=== PATIENT | male | born 1970 | race African-American/Black ===

== ENCOUNTER 2018-11-28 06:07 | Inpatient (IN) | payer BC ==
[2018-11-28] VITALS (21 sets, daily range): BP systolic 108–159; BP diastolic 64–100
[~2018-11-28] VITALS: Ht 185.4 cm; Wt 120.2 kg
[2018-11-28] MEDS ORDERED: MORPHINE SULFATE 4 MG/ML CPJ (NOT FOR IM USE) IV ONE (07:15)
[2018-11-28] MEDS ORDERED: IOHEXOL-350 100 ML BOTTLE ONE (07:36)
[2018-11-28 07:48] LABS: BASOPHILS % 0.7 % (0.0-2.0); EOSINOPHILS % 1.5 % (0.0-5.0); HEMATOCRIT. 43.3 % (42.0-52.0); HEMOGLOBIN. 14.2 g/dL (14.0-18.0); LYMPHOCYTES % 54.3 % (20.0-50.0); MEAN CORPUSCULAR HEMOGLOBIN 27.5 pg (28.0-32.0); MEAN CORPUSCULAR VOLUME 84.3 fL (80.0-94.0); MEAN PLATELET VOLUME 7.8 fl (7.4-10.4); MONOCYTES % 7.2 % (2.0-8.0); NEUTROPHILS % 36.3 % (40.0-76.0); PLATELET 216 x1000/uL (130-400); RED BLOOD CELL COUNT 5.14 mill/uL (4.7-6.1); RED CELL DISTRIBUTION WIDTH 13.4 % (11.6-14.6)
[2018-11-28 07:55] LABS: CHLORIDE 107 mEq/L (98-107)
[2018-11-28 07:57] LABS: PROTHROMBIN TIME 10.4 sec (9.1-11.1)
[2018-11-28] MEDS: ALTEPLASE IV STA ×2 (08:26→08:38)
[2018-11-28] MEDS: ALTEPLASE 100MG/VIAL IV STA ×2 (08:26→08:37)
[2018-11-28] MEDS: ALTEPLASE 81 MG in BAG 1 EACH IV NR (08:38)
[2018-11-28] MEDS ORDERED: ALTEPLASE 100MG/VIAL IV NR (08:45)
[2018-11-28] MEDS ORDERED: *NO ASPIRIN X 24 HOURS XX SCH (09:45)
[2018-11-28] MEDS ORDERED: DIPHENHYDRAMINE 50MG/ML VIAL IV PRN (11:45)
[2018-11-28] MEDS ORDERED: ONDANSETRON HCL 4MG/2ML INJ IV PRN (11:45)
[2018-11-28] MEDS ORDERED: HYDROMORPHONE HCL/PF 2MG/ML CPJ IV PRN (11:45)
[2018-11-28 13:13] LABS: INR 1.1; PARTIAL THROMBOPLASTIN TIME 29.4 sec (23.4-31.0); PROTHROMBIN TIME 10.8 sec (9.1-11.1)
[2018-11-28 13:16] LABS: PHOSPHORUS 4.3 mg/dL (2.5-4.9)
[2018-11-28 13:38] LABS: HEPATITIS B SURFACE ANTIGEN NEGATIVE
[2018-11-28 14:08] LABS: HEPATITIS A AB IGM NEGATIVE (NEGATIVE)
[2018-11-28] MEDS: INSULIN LISPRO 100 UNITS/ML SUBCUT SCH ×2 (17:30→21:00)
[2018-11-28] MEDS ORDERED: DEXTROSE 50% WATER 50ML SYRINGE IV PRN (17:30)
[2018-11-28] MEDS: BLOOD SUGAR DIAGNOSTIC STRIP TEST SCH ×2 (18:17→21:00)
[2018-11-28] MEDS ORDERED: INSULIN LISPRO 100 UNITS/ML SUBCUT SCH (21:00)
[2018-11-28] MEDS ORDERED: BLOOD SUGAR DIAGNOSTIC STRIP TEST SCH (21:00)
[2018-11-29] VITALS (48 sets, daily range): BP systolic 101–147; BP diastolic 69–112
[2018-11-29 05:28] LABS: BASOPHILS % 0.7 % (0.0-2.0); EOSINOPHILS % 1.8 % (0.0-5.0); HEMATOCRIT. 44.6 % (42.0-52.0); HEMOGLOBIN. 14.5 g/dL (14.0-18.0); LYMPHOCYTES % 47.3 % (20.0-50.0); MEAN CORPUSCULAR HEMOGLOBIN 27.6 pg (28.0-32.0); MEAN CORPUSCULAR VOLUME 84.6 fL (80.0-94.0); MEAN PLATELET VOLUME 7.7 fl (7.4-10.4); MONOCYTES % 5.8 % (2.0-8.0); NEUTROPHILS % 44.4 % (40.0-76.0); PLATELET 229 x1000/uL (130-400); RED BLOOD CELL COUNT 5.28 mill/uL (4.7-6.1); RED CELL DISTRIBUTION WIDTH 13.6 % (11.6-14.6)
[2018-11-29] MEDS: INSULIN LISPRO 100 UNITS/ML SUBCUT SCH ×4 (06:27→20:51)
[2018-11-29] MEDS: BLOOD SUGAR DIAGNOSTIC STRIP TEST SCH ×4 (06:27→20:51)
[2018-11-29 08:07] LABS: CHLORIDE 106 mEq/L (98-107)
[2018-11-29 08:13] LABS: LDL CHOLESTEROL 64 mg/dL (5-100)
[2018-11-29 08:15] LABS: HDL CHOLESTEROL 35 mg/dL (40-59)
[2018-11-29] MEDS ORDERED: CLOPIDOGREL 75MG TABLET PO NR (15:30)
[2018-11-29] MEDS ORDERED: ASPIRIN 81MG EC TABLET PO NR (15:30)
[2018-11-30] VITALS (17 sets, daily range): BP systolic 131–152; BP diastolic 79–99
[2018-11-30] MEDS: BLOOD SUGAR DIAGNOSTIC STRIP TEST SCH (05:45)
[2018-11-30 05:58] LABS: BASOPHILS % 0.8 % (0.0-2.0); EOSINOPHILS % 1.2 % (0.0-5.0); HEMOGLOBIN. 14.3 g/dL (14.0-18.0); LYMPHOCYTES % 47.3 % (20.0-50.0); MEAN CORPUSCULAR HEMOGLOBIN 27.9 pg (28.0-32.0); MEAN CORPUSCULAR VOLUME 84.1 fL (80.0-94.0); MEAN PLATELET VOLUME 7.5 fl (7.4-10.4); MONOCYTES % 7.3 % (2.0-8.0); NEUTROPHILS % 43.4 % (40.0-76.0); PLATELET 220 x1000/uL (130-400); RED BLOOD CELL COUNT 5.11 mill/uL (4.7-6.1); RED CELL DISTRIBUTION WIDTH 13.5 % (11.6-14.6)
[2018-11-30] MEDS: INSULIN LISPRO 100 UNITS/ML SUBCUT SCH (06:06)
[2018-11-30 06:11] LABS: CHLORIDE 107 mEq/L (98-107)
[2018-11-30] MEDS ORDERED: ASPIRIN 81MG EC TABLET PO SCH (09:00)
[2018-11-30] MEDS ORDERED: CLOPIDOGREL 75MG TABLET PO SCH (09:00)
[2018-11-30 13:11] LABS: HIV SCREEN 4G Non Reactive (Non Reactive)
[2018-11-30] MEDS ORDERED: ATORVASTATIN CALCIUM 10MG TABLET PO SCH (21:00)
== END 2018-11-30 12:30 | disposition home or self-care (01) | DRG 62 ==
LOC: ER 06:07 → MICUSO 09:14 → EDBEDREQSVC 09:16 → EDBEDREQ 09:16 → EDBEDREQTM 09:16 → CANRESERV 11:30 → ENRESERV 11:30
PROVIDERS: ADMIT Internal Medicine; ATTEND Internal Medicine
DX: I63.9 Cerebral infarction, unspecified (principal); G81.94 Hemiplegia, unspecified affecting left nondominant side; E78.1 Pure hyperglyceridemia; E66.09 Other obesity due to excess calories; R07.9 Chest pain, unspecified; I10 Essential (primary) hypertension; F17.290 Nicotine dependence, other tobacco product, uncomplicated; I25.2 Old myocardial infarction; Z68.35 Body mass index [BMI] 35.0-35.9, adult; M94.0 Chondrocostal junction syndrome [Tietze]
CPT/HCPCS: 36415; 70496; 70498; 70551; 71045; 71275; 80048; 80061; 82962; 83036; 83735; 83880; 84100; 84443; 84484; 86705; 86709; 86803; 87340; 87389; 93005; 93306; 93970; 96374; 96375; 97162; 97165; 99291; J2270; J2997; Q9967

== ENCOUNTER 2023-05-09 09:45 | Emergency (ER) | payer BC ==
[~2023-05-09] VITALS: Ht 177.8 cm; Wt 100.0 kg
[2023-05-09 09:47] VITALS: O2SAT 100
[2023-05-09] MEDS ORDERED: KETOROLAC 30MG/ML VIAL IM ONE (10:15)
[2023-05-09] MEDS ORDERED: KETOROLAC 30MG/ML VIAL IM NR (10:30)
[2023-05-09 12:00] VITALS: BP 154/102; PULSE 78; RESP 15; TEMP 98.3
== END 2023-05-09 12:13 ==
LOC: ER 09:45
DX: M25.512 Pain in left shoulder (principal)
CPT/HCPCS: 99285; 73030; 96372; J1885